=== PATIENT | male | born 1945 | race Caucasian/White ===

== ENCOUNTER → 2016-11-30 | Outpatient (CLI) | payer MEDICARE, OTHER | END | disposition home or self-care (01) | LOC: GMAB 10:30 | PROVIDERS: ATTEND Family Medicine | DX: Z12.5 Encounter for screening for malignant neoplasm of prostate (principal); I10 Essential (primary) hypertension | CPT/HCPCS: 84443; G0103 ==

== ENCOUNTER → 2017-12-08 | Outpatient (CLI) | payer MEDICARE, OTHER | LOC: GMAE 10:29 | PROVIDERS: ATTEND Family Medicine | DX: I10 Essential (primary) hypertension (principal) ==

== ENCOUNTER → 2018-02-03 | Outpatient (CLI) | payer MEDICARE ==
--- NOTE | 2018-02-03 08:29 | RAD ---
EXAM DESCRIPTION: Shoulder,Right 2 or More Views CLINICAL HISTORY: SHOULDER PAIN COMPARISON: None. TECHNIQUE: 4 views right FINDINGS: Mild degenerative changes are observed in the acromio clavicular joint. Subacromial spur is observed. The glenohumeral joint is unremarkable. No evidence for fracture or dislocation is seen. IMPRESSION: Right AC joint degenerative changes are observed. Exam is otherwise unremarkable. Electronically signed by: James Falk MD 02/03/2018 8:28 AM [facility]
--- NOTE | 2018-02-03 08:35 | RAD ---
EXAM DESCRIPTION: Forearm,Right CLINICAL HISTORY: 72 years Male, FOREARM PAIN COMPARISON: None. FINDINGS: Right forearm two x-ray views. Advanced degenerative osteoarthrosis of the elbow is seen. Radial head and capitellum are normally aligned on both views. No displacement of the distal humeral fat pads to suggest occult radial head fracture. No fracture is visualized on the AP and lateral views. No bony destructive lesion. IMPRESSION: Radius and ulna appear intact. 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 Electronically signed by: Baakri Tellez MD 02/03/2018 8:34 AM [facility]
== END ==
LOC: RAD 08:00
PROVIDERS: ATTEND Orthopaedic Surgery
DX: M25.511 Pain in right shoulder (principal); M79.631 Pain in right forearm; M19.021 Primary osteoarthritis, right elbow

== ENCOUNTER → 2018-11-14 | Outpatient (CLI) | payer MEDICARE, OTHER | LOC: YCFC.O 10:57 | PROVIDERS: ATTEND Family Medicine | DX: N39.0 Urinary tract infection, site not specified (principal); N48.1 Balanitis ==

== ENCOUNTER → 2018-12-13 | Outpatient (CLI) | payer MEDICARE, OTHER | LOC: GMAB 06:45 | PROVIDERS: ATTEND Family Medicine | DX: I10 Essential (primary) hypertension (principal); N40.1 Benign prostatic hyperplasia with lower urinary tract symptoms; E55.9 Vitamin D deficiency, unspecified; E78.5 Hyperlipidemia, unspecified; E66.9 Obesity, unspecified ==

== ENCOUNTER → 2019-01-02 | Outpatient (CLI) | payer MEDICARE, OTHER | LOC: LAB.O 07:01 | PROVIDERS: ATTEND Family Medicine | DX: D64.9 Anemia, unspecified (principal); D51.0 Vitamin B12 deficiency anemia due to intrinsic factor deficiency; D52.9 Folate deficiency anemia, unspecified ==

== ENCOUNTER → 2019-02-21 | Outpatient (CLI) | payer MEDICARE, OTHER | LOC: LAB.O 09:00 | PROVIDERS: ATTEND Family Medicine | DX: R94.31 Abnormal electrocardiogram [ECG] [EKG] (principal); D50.9 Iron deficiency anemia, unspecified; N52.9 Male erectile dysfunction, unspecified ==

== ENCOUNTER → 2019-08-30 | Outpatient (CLI) | payer MEDICARE, OTHER | LOC: YCFC.O 07:05 | PROVIDERS: ATTEND Family Medicine | DX: R79.89 Other specified abnormal findings of blood chemistry (principal) ==

== ENCOUNTER → 2019-12-26 | Outpatient (CLI) | payer MEDICARE, OTHER | LOC: YCFC.O 11:56 | PROVIDERS: ATTEND Family Medicine | DX: Z20.828 Contact with and (suspected) exposure to other viral communicable diseases (principal) ==

== ENCOUNTER → 2020-02-27 | Outpatient (CLI) | payer MEDICARE, OTHER | LOC: YCFC.O 07:20 | PROVIDERS: ATTEND Family Medicine | DX: I10 Essential (primary) hypertension (principal); E53.8 Deficiency of other specified B group vitamins; N40.1 Benign prostatic hyperplasia with lower urinary tract symptoms; R79.89 Other specified abnormal findings of blood chemistry; D50.9 Iron deficiency anemia, unspecified; R53.83 Other fatigue; Z13.220 Encounter for screening for lipoid disorders ==